=== PATIENT | female | born 1985 | race Caucasian/White ===

== ENCOUNTER 2017-07-05 12:53 | Emergency (ER) | payer SELFPAY ==
[2017-07-05 14:22] LABS: Wet Prep Trichomonas Trichomonas Absent (None Seen)
[2017-07-05 14:23] LABS: Wet Prep Clue Cells Clue Cells Absent (None Seen)
[2017-07-05 14:31] LABS: Pregnancy Test - Urine (BHCG) Negative (Negative); Pregu Control Background? CLEAR/WHITE (CLR/WHITE); Pregu Control Bar Appear? YES (CONTROL BAR); Specific Gravity 1.032 (1.002-1.036)
[2017-07-05] MEDS ORDERED: Ketorolac Tromethamine 60 MG/2 ML VIAL ONE (14:40)
[2017-07-05] MEDS ORDERED: cefTRIAXone\\ROCEPHIN 250 MG VIAL ONE (14:51)
[2017-07-05] MEDS ORDERED: Azithromycin 250 MG TAB ONE (14:51)
[2017-07-05] MEDS ORDERED: Lidocaine 1% 20 ML MDV ONE (14:51)
[2017-07-05 15:23] LABS: Bilirubin Negative (Negative); Blood, Urine Negative (Negative); Glucose, Urine (Dipstick) Negative (Negative); Leukocyte Small (Negative); Nitrite Negative (Negative); Protein, Urine (Dipstick) 30 mg/dL (Neg-Trace); Urobilinogen 0.2 mg/dL (0.2-1.0); pH, Urine 5.5 (5.0-9.0)
[2017-07-05 15:24] LABS: Clarity SL HAZY (Clear); Specific Gravity, Urine 1.032 (1.002-1.036)
[2017-07-05 15:34] LABS: RBC/HPF 0-3 HPF (0-3); Squamous Epithelial 0-3 HPF (0-3); WBC/HPF 0-3 HPF (0-3)
[2017-07-08 01:09] LABS: Chlamydia by PCR Inconclusive (NotDetected); GC by PCR Inconclusive (NotDetected)
== END 2017-07-05 16:05 | disposition home or self-care (01) ==
LOC: NAV ERS 12:53
DX: N89.8 Other specified noninflammatory disorders of vagina (principal); F41.9 Anxiety disorder, unspecified; F32.9 Major depressive disorder, single episode, unspecified; Z79.899 Other long term (current) drug therapy
CPT/HCPCS: 81003; 81015; 81025; 87077; 87086; 87186; 87210; 87480; 87491; 87510; 87591; 87660; 96372; J0696; J1885; J2001

== ENCOUNTER 2020-07-20 16:56 | Emergency (ER) | payer OTHER | END 2020-07-20 18:19 | disposition home or self-care (01) | LOC: NAV ERS 16:56 | DX: G89.18 Other acute postprocedural pain (principal); R10.2 Pelvic and perineal pain | CPT/HCPCS: 87070; 99283 ==

== ENCOUNTER 2020-08-05 11:53 | Emergency (ER) | payer OTHER | END 2020-08-05 13:05 | disposition home or self-care (01) | LOC: NAV ERS 11:53 | DX: K12.0 Recurrent oral aphthae (principal); Z79.899 Other long term (current) drug therapy | CPT/HCPCS: 99282 ==

== ENCOUNTER 2020-09-23 14:11 | Emergency (ER) | payer OTHER ==
[2020-09-23 14:52] LABS: #Basophils 0.1 thou/uL (0.0-0.2); #Eosinphils 0.1 thou/uL (0.0-0.7); #Monocytes 0.6 thou/uL (0.11-0.59); #Neutrophils 3.4 thou/uL (1.40-6.50); %Basophils 0.7 % (0.0-1.0); %Eosinophils 1.5 % (0.0-10.0); %Lymphocytes 41.7 % (21.0-51.0); %Monocytes 8.1 % (0.0-10.0); Hemoglobin 14.4 g/dL (12.0-16.0); Mean Corpuscular HGB CONC 30.9 g/dL (32.0-36.0); Mean Corpuscular Hemoglobin 29.1 pg (27.0-31.0); Mean Corpuscular Volume 94.2 fL (78.0-98.0); Mean Platelet Volume 6.6 fL (7.4-10.4); Platelet Count 284 thou/uL (130-400); RBC Distribution Width 12.3 % (11.5-14.5); Red Blood Cell (RBC) Count 4.93 mill/uL (4.20-5.40); White Blood Cell (WBC) Count 7.2 thou/uL (4.8-10.8)
[2020-09-23 15:11] LABS: ALT (SGPT) 20 U/L (8-55); AST (SGOT) 12 U/L (5-34); Albumin 3.9 g/dL (3.5-5.0); Alkaline Phosphatase 62 U/L (40-110); Anion Gap 13 mmol/L (10-20); BUN (Urea Nitrogen) 15 mg/dL (7.0-18.7); Bilirubin, Total 0.4 mg/dL (0.2-1.2); Calc. Creatinine Clearance 0 mL/min (70-130); Calcium 9.3 mg/dL (7.8-10.44); Carbon Dioxide 26 mmol/L (22-29); Chloride 103 mmol/L (98-107); Globulin 3.5 g/dL (2.4-3.5); Glucose 91 mg/dL (70-105); Potassium 4.2 mmol/L (3.5-5.1); Protein, Total 7.4 g/dL (6.0-8.3); Sodium 138 mmol/L (136-145)
== END 2020-09-23 15:27 | disposition home or self-care (01) ==
LOC: NAV ERS 14:11
DX: L52 Erythema nodosum (principal); Z79.899 Other long term (current) drug therapy
CPT/HCPCS: 71045; 80053; 85025; 85652; 86140

== ENCOUNTER 2020-11-16 18:37 | Emergency (ER) | payer OTHER ==
[2020-11-18 00:05] LABS: SARS-CoV-2 PCR by NAA DETECTED (NotDetected)
== END 2020-11-16 19:27 | disposition home or self-care (01) ==
LOC: NAV ERS 18:37
DX: U07.1 COVID-19 (principal)
CPT/HCPCS: 99284; U0003; U0005

== ENCOUNTER 2020-11-27 18:15 | Emergency (ER) | payer OTHER | END 2020-11-27 19:30 | disposition home or self-care (01) | LOC: NAV ERS 18:15 | DX: R53.83 Other fatigue (principal); R09.81 Nasal congestion | CPT/HCPCS: 99283 ==

== ENCOUNTER 2021-08-13 15:56 | Emergency (ER) | payer BC ==
[2021-08-13] MEDS ORDERED: diphenhydrAMINE 50 MG/ML VIAL ONE (16:00)
[2021-08-13] MEDS ORDERED: methylPREDNISolone Sod Succ/PF 125 MG/2 ML VIAL ONE (16:00)
[2021-08-13] MEDS ORDERED: EPINEPHrine 1 MG/ML AMP ONE (16:00)
[2021-08-13] MEDS ORDERED: Sodium Chloride 0.9% 1,000 ML ONE (16:14)
[2021-08-13 17:11] LABS: #Basophils 0.1 thou/uL (0.0-0.2); #Lymphocytes 2.7 thou/uL (1.20-3.40); #Monocytes 0.5 thou/uL (0.11-0.59); #Neutrophils 3.7 thou/uL (1.40-6.50); %Basophils 0.8 % (0.0-1.0); %Eosinophils 0.3 % (0.0-10.0); %Lymphocytes 38.7 % (21.0-51.0); %Monocytes 6.6 % (0.0-10.0); %Neutrophils 53.6 % (42.0-75.0); Hemoglobin 14.3 g/dL (12.0-16.0); Mean Corpuscular HGB CONC 31.2 g/dL (32.0-36.0); Mean Corpuscular Hemoglobin 29.7 pg (27.0-31.0); Mean Corpuscular Volume 95.1 fL (78.0-98.0); Mean Platelet Volume 7.3 fL (7.4-10.4); Platelet Count 276 thou/uL (130-400); RBC Distribution Width 11.8 % (11.5-14.5); Red Blood Cell (RBC) Count 4.81 mill/uL (4.20-5.40)
[2021-08-13 17:25] LABS: ALT (SGPT) 20 U/L (8-55); AST (SGOT) 17 U/L (5-34); Alkaline Phosphatase 45 U/L (40-110); Anion Gap 12 mmol/L (10-20); BUN (Urea Nitrogen) 11 mg/dL (7.0-18.7); Bilirubin, Total 0.4 mg/dL (0.2-1.2); Calc. Creatinine Clearance 0 mL/min (70-130); Calcium 8.9 mg/dL (7.8-10.44); Carbon Dioxide 24 mmol/L (22-29); Chloride 107 mmol/L (98-107); Globulin 2.6 g/dL (2.4-3.5); Glucose 122 mg/dL (70-105); Protein, Total 6.6 g/dL (6.0-8.3); Sodium 139 mmol/L (136-145)
[2021-08-13] MEDS ORDERED: Acetaminophen 500 MG TAB ONE (20:10)
== END 2021-08-13 20:15 | disposition home or self-care (01) ==
LOC: NAV ERS 15:56
DX: T78.49XA Other allergy, initial encounter (principal); Z79.899 Other long term (current) drug therapy
CPT/HCPCS: 80053; 85025; 96372; 96374; 96375; J0171; J1200; J2930; J7050